=== PATIENT | female | born 1980 | race Caucasian/White ===

== ENCOUNTER 2016-10-27 13:22 | Emergency (ER) | payer BC ==
[2016-10-27 13:33] VITALS: BP 133/88
[2016-10-27] MEDS ORDERED: Acetaminophen/HYDROcodone 325-5 MG Tab PO ONE (13:34)
--- NOTE | 2016-10-27 13:34 | EDM.PDOC ---
ED HPI Trauma - General Chief Complaint: Lower Extremity Injury/Pain Stated Complaint: INJURED LT ANKLE AND KNEE Time Seen by Provider: 10/27/16 13:27 Source: Reports: Patient - History of Present Illness INITIAL COMMENTS - FREE TEXT/NARRATIVE: Patient was riding horse this afternoon when she was bucked off, landed on her left side. Currently having mild left knee pain and significant left ankle pain. She did not hit her head, denies headache or neck pain. Allergies/ADRs: Allergies No Known Allergies Allergy (Verified 12/24/15 18:56) Home Medications: Ambulatory Orders Acanya Acne Cream 1 mg TOP DAILY 10/27/16 [Confirmed 10/27/16] Azithromycin [Zithromax] 250 mg PO DAILY 10/27/16 [Confirmed 10/27/16] Codeine/Promethazine [Phenergan with Codeine] 5 ml PO BEDTIME 10/27/16 [ Confirmed 10/27/16] Hydrocodone/Acetaminophen [Hydrocodon-Acetaminophen 5-325] 1 each PO Q6HR PRN # 30 tablet 10/27/16 guaiFENesin [Mucinex] 600 mg PO ASDIRECTED 10/27/16 [Confirmed 10/27/16] predniSONE [Prednisone] 0 mg PO DAILY 10/27/16 [Confirmed 10/27/16] Past Medical History HEENT History: Reports: Impaired vision Other HEENT History: wears eyeglasses. Cardiovascular History: Reports: Other (see below) Other Cardiovascular History: states has had episodes of "tachycardia." States has episodes in and in illness. SPOTTER History: Reports: Psychiatric History: Reports: None Hematologic History: Reports: None Immunologic History: Reports: None Oncologic (Cancer) History: Reports: None - Past Surgical History Head Surgeries/Procedures: Reports: None Female Surgical History: Reports: Tubal ligation Social & Family History - Tobacco Use Smoking Status *Q: Never Smoker Second Hand Smoke Exposure: No - Recreational Drug Use Recreational Drug Use: No - Living Situation & Occupation Living situation: Reports: , with family Occupation: employed ([employer]) Review of Systems - Review of Systems Review Of Systems: See Below Constitutional: Reports: no symptoms Respiratory: Reports: No Symptoms Cardiovascular: Reports: no symptoms Musculoskeletal: Reports: other (Left knee (mild) and ankle (moderate-severe) pain) Skin: Reports: no symptoms Neurological: Reports: No Symptoms Psychiatric: Reports: no symptoms Trauma Exam - Physical Exam Exam: See Below Exam Limited By: No limitations General Appearance: Reports: alert, WD/WN, moderate distress Head: Reports: atraumatic, normocephalic Respiratory Exam: Reports: no respiratory distress, lungs clear, normal breath sounds Cardiovascular: Reports: normal peripheral pulses, regular rate, rhythm, no murmur Extremities: Reports: other (Mild anterior left knee tenderness, no swelling or ecchymosis. Left ankle with swelling to lateral aspect. Decreased overall ankle ROM, able to move all toes. NV intact. ) Neurologic: Reports: no motor/sensory deficits, oriented x 3, motor weakness, sensory deficit Skin: Reports: Normal color, Warm/dry. Denies: Ecchymosis Course - Vital Signs Last Recorded V/S: Last Vital Signs Temp 99.2 F 10/27/16 13:32 Pulse 102 H 10/27/16 13:32 Resp 20 10/27/16 13:32 BP 133/88 10/27/16 13:32 Pulse Ox 100 10/27/16 13:32 - Orders/Labs/Meds Orders: Active Orders 24 hr Category Date Time Status Ankle Min 3V Lt [CR] Stat Exams 10/27/16 13:33 Taken Meds: Medications Discontinued Medications Generic Name Dose Route Start Last Admin Trade Name Linda PRN Reason Stop Dose Admin Acetaminophen/Hydrocodone Bitart 1 tab 10/27/16 13:34 10/27/16 14:20 [place] 325-5 Mg PO 10/27/16 13:35 1 tab ONETIME ONE Administration - Re-Assessments/Exams Free Text/Narrative Re-Assessment/Exam: Knee exam normal, signficant swelling to lateral aspect of left ankle. Will give her hydrocodone for pain and get an xray of her left ankle. 10/27/16 13:40 Free Text/Narrative Re-Assessment/Exam: Non-displaced fracture of left fibula. Short leg splint applied, patient has crutches at home she can use and she is to be NWB. Recommend ice, NSAIDs and hydrocodone given for breakthrough pain. She will follow-up with orthopedics next week. 10/27/16 15:50 Departure - Departure Time of Disposition: 14:35 Disposition: Home, Self-Care 01 Condition: good Clinical Impression: Fracture of fibula Fracture, fibula Qualifiers: Encounter type: initial encounter Fibula location: distal Fracture type: closed Laterality: left Prescriptions: Hydrocodone/Acetaminophen [Hydrocodon-Acetaminophen 5-325] 1 each PO Q6HR PRN # 30 tablet PRN Reason: Pain Instructions: Tibial and Fibular Fracture, Adult Referrals: Janes Bowser MD [Primary Care Provider] - Forms: ED Department Discharge Additional Instructions: Keep splint on, do not bear weight to left leg. Elevate above heart as much as possible. Ice (ankle and knee) 15 minutes every 2-3 hours. Ibuprofen 400-600mg every 6 hours, if that doesn't work for pain you may use hydrocodone every 6 hours. Call [phone] today to schedule an appointment to see Dr Brown next week. - My Orders Last 24 Hours: My Active Orders 10/27/16 13:33 Ankle Min 3V Lt [CR] Stat - Assessment/Plan Last 24 Hours: My Active Orders 10/27/16 13:33 Ankle Min 3V Lt [CR] Stat
--- NOTE | 2016-10-30 08:01 | CR ---
Left ankle: Four views of the left ankle were obtained. Comparison: No previous ankle study. Distal fibular fracture is seen. Alignment remains very close to anatomic. Soft tissue swelling is noted. Ankle mortise is symmetric. No additional fracture or other bony abnormality is seen. Impression: 1. Essentially nondisplaced distal fibular fracture with soft tissue swelling. Diagnostic code #3
== END 2016-10-27 15:00 | disposition home or self-care (01) ==
LOC: JD.ED 13:22
DX: S82.832A Other fracture of upper and lower end of left fibula, initial encounter for closed fracture (principal); V80.010A Animal-rider injured by fall from or being thrown from horse in noncollision accident, initial encounter; Z79.2 Long term (current) use of antibiotics; Z79.899 Other long term (current) drug therapy
CPT/HCPCS: 29515; 73610; 99283; A9270

== ENCOUNTER 2024-11-06 08:59 | Day surgery (SDC) | payer BC, OTHER ==
[~2024-11-06 08:59] MED LIST: Sodium Chloride 0.9% 10 ML Syringe FLUSH PRN; Sodium Chloride 0.9% 10 ML Syringe FLUSH SCH
[2024-11-06] MEDS ORDERED: ceFAZolin 2 GM Vial ONE (09:02)
[2024-11-06] MEDS ORDERED: Midazolam 1 MG/ML 2 ML SDV ONE (09:02)
[2024-11-06] MEDS ORDERED: fentaNYL 250 MCG/5 ML SDV ONE (09:02)
[2024-11-06] MEDS ORDERED: Ketorolac 30 MG/ML SDV ONE (09:02)
[2024-11-06] MEDS ORDERED: Rocuronium 50 MG/5 ML Vial ONE (09:02)
[2024-11-06] MEDS ORDERED: Sugammadex Sodium 200 MG/2 ML VIAL IV ONE (09:02)
[2024-11-06] MEDS ORDERED: Dexamethasone 4 MG/ML 5 ML MDV ONE (09:02)
[2024-11-06] MEDS ORDERED: Lidocaine 2% 5 ML SDV ONE (09:03)
[2024-11-06] MEDS: Lactated Ringers 1,000 ML IV SCH (09:30)
[2024-11-06] MEDS ORDERED: propofoL 1,000 MG/100 ML 100 ML ONE (10:10)
[2024-11-06] MEDS: EPINEPHrine 1 MG/ML SDV ONE (11:05)
[2024-11-06] MEDS: Bupivacaine 0.5% 30 ML SDV ONE (11:05)
[2024-11-06] MEDS ORDERED: Ondansetron 4 MG/2 ML SDV IVPUSH PRN (11:48)
[2024-11-06] MEDS ORDERED: HYDROmorphone 0.5 MG/0.5 ML Syringe IVPUSH PRN (11:48)
[2024-11-06] MEDS ORDERED: fentaNYL 100 MCG/2 ML SDV IVPUSH PRN (11:48)
[2024-11-06] MEDS: oxyCODONE 5 MG Tab PO PRN (12:51)
[2024-11-06 15:20] VITALS: BP 110/68; PULSE 68
== END 2024-11-06 15:05 | disposition home or self-care (01) ==
LOC: JD.SDS 08:59
PROVIDERS: ATTEND Surgery
DX: K42.9 Umbilical hernia without obstruction or gangrene (principal)
CPT/HCPCS: 49591; A9270; J0171; J0665; J0690; J1100; J1885; J2003; J2250; J2704; J3010; J7120; 00840; J3490